=== PATIENT | female | born 1985 | race Caucasian/White ===

== ENCOUNTER 2016-12-28 14:56 | Emergency (ER) | payer BC ==
--- NOTE | 2016-12-28 15:18 | UC ---
Throat Pain/Nasal Raghu HPI - HPI Summary HPI Summary: ST for about a week. and children have been treated for strep in the last few days, figured she should get seen before they run out of abx. No fever , vomiting, or rashes. Denies nasal congestion or cough. - History of Current Complaint Stated Complaint: SORE THROAT Time Seen by Provider: 12/28/16 15:07 Hx Obtained From: Patient Hx Last Menstrual Period: 06/17/16- PERIODS ARE IRREGULAR ?: No Onset/Duration: Gradual Onset, Lasting Days Severity: Mild Cough: None - Allergies/Home Medications Allergies/Adverse Reactions: Allergies Allergy/AdvReac Type Severity Reaction Status Date / Time No Known Allergies Allergy Verified 07/22/16 19:48 PMH/Surg Hx/FS Hx/Imm Hx Previously Healthy: Yes Endocrine History Of: Denies: Diabetes Cardiovascular History Of: Denies: Cardiac Disorders Respiratory History Of: Denies: Asthma - Surgical History Surgical History: Yes Surgery Procedure, Year, and Place: tonsillectomy. cholecystectomy - Family History Known Family History: Positive: Diabetes, Other - asthma Family History: NON CONTRIBUTORY - Social History Lives: With Family Alcohol Use: Occasionally Substance Use Type: None Smoking Status (MU): Never Smoked Tobacco Review of Systems Constitutional: Negative Skin: Negative Eyes: Negative ENT: Sore Throat Respiratory: Negative Cardiovascular: Negative Gastrointestinal: Negative Genitourinary: Negative Motor: Negative Neurovascular: Negative Musculoskeletal: Negative Neurological: Negative Psychological: Negative All Other Systems Reviewed And Are Negative: Yes Physical Exam Triage Information Reviewed: Yes Appearance: Well-Appearing, No Pain Distress, Obese Vital Signs Reviewed: Yes Eye Exam: Normal Eyes: Positive: Conjunctiva Clear ENT: Positive: Hearing grossly normal, TMs normal. Negative: Tonsillar swelling - s/p tonsillectomy, Tonsillar exudate Dental Exam: Normal Neck exam: Normal Neck: Positive: Supple, Nontender, No Lymphadenopathy Respiratory Exam: Normal Respiratory: Positive: Chest non-tender, Lungs clear, Normal breath sounds, No respiratory distress, No accessory muscle use Cardiovascular Exam: Normal Cardiovascular: Positive: RRR, No Murmur Musculoskeletal Exam: Normal Neurological Exam: Normal Neurological: Positive: Alert Psychological Exam: Normal Skin Exam: Normal Throat Pain/Nasal Course/Dx - Course Course Of Treatment: RST negative - Differential Dx/Diagnosis Provider Diagnoses: pharyngitis Discharge - Discharge Plan Condition: Stable Disposition: HOME Patient Education Materials: Pharyngitis (ED) Referrals: Marquita Cleary MD [Primary Care Provider] - Additional Instructions: Your rapid strep was negative; either you had strep but cleared it, or you have a sore throat from something else. Please get seen again if symptoms persist or worsen.
[2016-12-28 15:31] VITALS: BP 126/70
== END 2016-12-28 15:43 | disposition home or self-care (01) ==
LOC: UCCORT 14:56
DX: J02.9 Acute pharyngitis, unspecified (principal); E66.9 Obesity, unspecified; Z90.49 Acquired absence of other specified parts of digestive tract
CPT/HCPCS: 87651; 99211; G0463

== ENCOUNTER 2017-01-06 09:00 | Emergency (ER) | payer BC ==
[2017-01-06 09:32] VITALS: BP 126/74
--- NOTE | 2017-01-06 10:58 | UC ---
Throat Pain/Nasal Raghu HPI - HPI Summary HPI Summary: WORSENING SORETHROAT SINCE 12/28/16. EXPOSED TO STREP WITH CHILDREN, HAS HAD FEVER OF 101F. INCREASED URINARY FREQUENCY OVER LAST TWO DAYS. - History of Current Complaint Chief Complaint: UCGU Stated Complaint: FEVER SORE THROAT RECHECK Time Seen by Provider: 01/06/17 10:16 Hx Obtained From: Patient Hx Last Menstrual Period: 2 months Onset/Duration: Gradual Onset, Lasting Weeks, Still Present Severity: Moderate Cough: Nonproductive Associated Signs & Symptoms: Positive: Hoarseness, Sinus Discomfort, Nasal Discharge, Fever - Epiglottits Risk Factors Epiglottis Risk Factors: Negative - Allergies/Home Medications Allergies/Adverse Reactions: Allergies Allergy/AdvReac Type Severity Reaction Status Date / Time No Known Allergies Allergy Verified 01/06/17 09:32 Home Medications: Home Medications [id number] [Nighttime Cold Flu & Reli 15-6.25-325 mg] 2 cap PO ONCE PRN 01/06/17 [History Confirmed 01/06/17] Implanon 01/06/17 [History] Ibuprofen TAB* [Motrin TAB* 600 MG] 600 mg PO Q6H PRN 01/06/17 [History Confirmed 01/06/17] metFORMIN* [Glucophage 500 MG TAB *] 500 mg PO DAILY 01/06/17 [History Confirmed 01/06/17] PMH/Surg Hx/FS Hx/Imm Hx Previously Healthy: Yes Endocrine History Of: Denies: Diabetes Cardiovascular History Of: Denies: Cardiac Disorders Respiratory History Of: Denies: Asthma - Surgical History Surgical History: Yes Surgery Procedure, Year, and Place: tonsillectomy. cholecystectomy - Family History Known Family History: Positive: Diabetes, Other - asthma Negative: Renal Disease Family History: NON CONTRIBUTORY - Social History Occupation: Employed Full-time Lives: With Family Alcohol Use: Occasionally Substance Use Type: None Smoking Status (MU): Former Smoker - Immunization History Most Recent Influenza Vaccination: [id number] Review of Systems Constitutional: Fever, Chills, Fatigue Skin: Negative Eyes: Negative ENT: Sore Throat, Nasal Discharge Respiratory: Cough Cardiovascular: Negative Gastrointestinal: Negative Genitourinary: Frequency, Urgency Motor: Negative Neurovascular: Negative Musculoskeletal: Negative Neurological: Negative Psychological: Negative All Other Systems Reviewed And Are Negative: Yes Physical Exam Triage Information Reviewed: Yes Appearance: Well-Appearing, Well-Nourished, Obese Vital Signs: Initial Vital Signs Temp 99.8 F 01/06/17 09:23 Pulse 94 01/06/17 09:23 Resp 18 01/06/17 09:23 BP 126/74 01/06/17 09:23 Pulse Ox 100 01/06/17 09:23 Vital Signs Reviewed: Yes Eye Exam: Normal ENT: Positive: Hearing grossly normal, Pharyngeal erythema, Nasal congestion, Nasal drainage, TM bulging, TM dull Dental Exam: Normal Neck exam: Normal Neck: Positive: Supple, Nontender, No Lymphadenopathy Respiratory Exam: Normal Respiratory: Positive: Chest non-tender, Lungs clear, Normal breath sounds, No respiratory distress, No accessory muscle use Cardiovascular Exam: Normal Cardiovascular: Positive: RRR, No Murmur, Pulses Normal Abdominal Exam: Normal Abdomen Description: Positive: Nontender, No Organomegaly Musculoskeletal Exam: Normal Musculoskeletal: Positive: Strength Intact, ROM Intact Neurological Exam: Normal Psychological Exam: Normal Psychological: Positive: Normal Response To Family Skin Exam: Normal Throat Pain/Nasal Course/Dx - Differential Dx/Diagnosis Differential Diagnosis/HQI/PQRI: Sinusitis, Tonsillitis, URI Provider Diagnoses: SINUSITIS. PHARYNGITIS. DYSURIA Discharge - Discharge Plan Condition: Stable Disposition: HOME Prescriptions: Amoxicillin/Clavulanate TAB* [Augmentin TAB 875*] 875 mg PO BID #20 tab Benzonatate CAP* [Tessalon 100 MG CAP*] 100 mg PO TID PRN #15 cap PRN Reason: Cough Patient Education Materials: Pharyngitis (ED), Sinusitis (ED), Dysuria (ED) Forms: *Work Release Referrals: Marquita Cleary MD [Primary Care Provider] -
== END 2017-01-06 11:00 | disposition home or self-care (01) ==
LOC: UCCORT 09:00
DX: J32.9 Chronic sinusitis, unspecified (principal); J02.9 Acute pharyngitis, unspecified; R30.0 Dysuria; Z32.02 Encounter for pregnancy test, result negative; Z90.49 Acquired absence of other specified parts of digestive tract; E66.9 Obesity, unspecified; Z87.891 Personal history of nicotine dependence
CPT/HCPCS: 81003; 84702; 99212; G0463

== ENCOUNTER 2017-03-03 08:24 | Emergency (ER) | payer BC ==
--- NOTE | 2017-03-03 08:33 | UC ---
UC General HPI - HPI Summary HPI Summary: The patient comes in today for: 1. Possible tampon in vaginal area: Onset: Yesterday. Palliative/provocative: Nothing makes it better or worse. Quality: "Pressure." Region: Severity: 0/10 Time: Constant. Associated symptoms: Event: She thinks that she has a tampon in the vagina which she is not able to get out at home. LMP: 'Slowing down yesterday." A0 female. * - History of Current Complaint Stated Complaint: PERSONAL Time Seen by Provider: 03/03/17 08:27 - Allergy/Home Medications Allergies/Adverse Reactions: Allergies Allergy/AdvReac Type Severity Reaction Status Date / Time No Known Allergies Allergy Verified 03/03/17 08:32 PMH/Surg Hx/FS Hx/Imm Hx Previously Healthy: Yes - Surgical History Surgical History: Yes Surgery Procedure, Year, and Place: tonsillectomy. cholecystectomy - Family History Known Family History: Positive: Hypertension, Diabetes, Other - asthma Negative: Cardiac Disease, Renal Disease Family History: NON CONTRIBUTORY - Social History Occupation: Employed Full-time Alcohol Use: Occasionally Substance Use Type: None Smoking Status (MU): Former Smoker - Immunization History Most Recent Influenza Vaccination: [id number] Review of Systems Constitutional: Negative Skin: Negative Eyes: Negative ENT: Negative Respiratory: Negative Cardiovascular: Negative Gastrointestinal: Negative Genitourinary: Negative All Other Systems Reviewed And Are Negative: Yes Physical Exam Triage Information Reviewed: Yes Appearance: Well-Appearing, No Pain Distress, Well-Nourished Vital Signs Reviewed: Yes Eyes: Positive: Conjunctiva Clear. Negative: Discharge ENT: Positive: Hearing grossly normal. Negative: Pharyngeal erythema, Nasal congestion, Nasal drainage, TM bulging, TM dull, TM red, Tonsillar swelling, Tonsillar exudate Dental: Negative: Gross Decay/Caries @, Dental Fracture @ Neck: Positive: Supple, Nontender, No Lymphadenopathy. Negative: Nuchal Rigidity Respiratory: Positive: Chest non-tender, Lungs clear, No respiratory distress. Negative: Rhonchi, Wheezing Cardiovascular: Positive: RRR, No Murmur Abdomen Description: Positive: Nontender, No Organomegaly, Soft. Negative: Distended, Guarding Musculoskeletal: Positive: Strength Intact, ROM Intact, No Edema Neurological: Positive: Alert, Muscle Tone Normal Psychological: Positive: Age Appropriate Behavior, Consolable Skin: Negative: rashes, breakdown UC Physical Exam - Genitalia Exam Female Genitourinary: Other - External genital: No lesions Speculum: Tampon removed. No discharge Bimanual: No tenderness or masses. Course/Dx - Differential Dx - Multi-Symptom Provider Diagnoses: Retained tampon--removed. Discharge - Discharge Plan Condition: Stable Disposition: HOME Referrals: Marquita Cleary MD [Primary Care Provider] - If Needed
[2017-03-03 08:43] VITALS: BP 152/75
== END 2017-03-03 09:30 | disposition home or self-care (01) ==
LOC: UCCORT 08:24
DX: T19.2XXA Foreign body in vulva and vagina, initial encounter (principal); X58.XXXA Exposure to other specified factors, initial encounter; Y93.9 Activity, unspecified; Y92.9 Unspecified place or not applicable; Z90.49 Acquired absence of other specified parts of digestive tract; Z87.891 Personal history of nicotine dependence
CPT/HCPCS: 99211; G0463

== ENCOUNTER 2017-11-02 16:09 | Emergency (ER) | payer BC ==
[2017-11-02 16:30] VITALS: BP 152/75
--- NOTE | 2017-11-02 16:44 | ED ---
Neck Pain - HPI Summary HPI Summary: 31 yr old female with neck pain on left side and in the left trapezius, feels tight, onset a couple of weeks ago, worse with movement and turning head toward the left the most. No trauma or injury. 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 No falls or injuries on her job. She denies weakness or numbness in the left hand. - History of Current Complaint Chief Complaint: UCUpperExtremity Stated Complaint: LEFT SHOULDER AND NECK PAIN Time Seen by Provider: 11/02/17 16:30 Hx Last Menstrual Period: irregular/uses condoms Pain Intensity: 7 - Allergies/Home Medications Allergies/Adverse Reactions: Allergies Allergy/AdvReac Type Severity Reaction Status Date / Time No Known Allergies Allergy Verified 11/02/17 16:30 Home Medications: Home Medications metFORMIN* [Glucophage 500 MG TAB *] 500 mg PO BID 11/02/17 [History Confirmed 11/02/17] PMH/Surg Hx/FS Hx/Imm Hx Endocrine/Hematology History: Denies: Hx Diabetes Respiratory History: Denies: Hx Asthma History: Reports: Other Problems/Disorders - Polycystic ovarian syndrome - Surgical History Surgery Procedure, Year, and Place: tonsillectomy. cholecystectomy Infectious Disease History: No Infectious Disease History: Denies: Traveled Outside the [place] in Last 30 Days - Family History Known Family History: Positive: Hypertension, Diabetes, Other - asthma Negative: Cardiac Disease, Renal Disease Family History: NON CONTRIBUTORY - Social History Alcohol Use: Occasionally Substance Use Type: Reports: None Smoking Status (MU): Former Smoker Review of Systems Positive: Other - neck/trapezius pain All Other Systems Reviewed And Are Negative: Yes Physical Exam Triage Information Reviewed: Yes Vital Signs On Initial Exam: Initial Vitals Temp Pulse Resp BP Pulse Ox 98.1 F 90 17 152/75 98 11/02/17 16:24 11/02/17 16:24 11/02/17 16:24 11/02/17 16:24 11/02/17 16:24 Vital Signs Reviewed: Yes Appearance: Positive: Well-Appearing, No Pain Distress Skin: Positive: Warm, Skin Color Reflects Adequate Perfusion Head/Face: Positive: Normal Head/Face Inspection Eyes: Positive: EOMI ENT: Positive: Normal ENT inspection, Pharynx normal, Uvula midline. Negative: Muffled voice, Hoarse voice Dental: Negative: Cervical Lymphadenopathy Neck: Positive: Nontender, No Lymphadenopathy. Negative: Nuchal Rigidity Respiratory/Lung Sounds: Positive: Clear to Auscultation, Breath Sounds Present Cardiovascular: Positive: RRR. Negative: Murmur Abdomen Description: Positive: Nontender Musculoskeletal: Positive: Other - left side of her trapezius is tight, and rom of the neck is limited a little looking toward the left side. No focal bone tenderness on the neck. No focal weakness in the left arm or right arm. No numbness. she has no redness or fluctuance on inspection or palpation of the neck or trapezius Neurological: Positive: Sensory/Motor Intact, Alert, Oriented to Person Place, Time, CN Intact II-III - Madeline Coma Scale Best Eye Response: 4 - Spontaneous Best Motor Response: 6 - Obeys Commands Best Verbal Response: 5 - Oriented Coma Scale Total: 15 Diagnostics - Vital Signs Vital Signs Temp Pulse Resp BP Pulse Ox 11/02/17 16:24 98.1 F 90 17 152/75 98 - Laboratory Lab Statement: Any lab studies that have been ordered have been reviewed, and results considered in the medical decision making process. Neck Course/Dx - Course Course Of Treatment: 31 yr old with neck torticollis. Rx flexeril, motrin. DC home. FU with pmd. - Diagnoses Provider Diagnoses: Torticollis, Hypertension Discharge - Discharge Plan Condition: Good Disposition: HOME Patient Education Materials: Spasmodic Torticollis (ED), Hypertension (ED) Referrals: REFUGIO Romo [Primary Care Provider] -
== END 2017-11-02 16:59 | disposition home or self-care (01) ==
LOC: UCCORT 16:09
DX: M43.6 Torticollis (principal); I10 Essential (primary) hypertension; Z32.02 Encounter for pregnancy test, result negative; Z90.49 Acquired absence of other specified parts of digestive tract; Z87.891 Personal history of nicotine dependence
CPT/HCPCS: 84702; 99212; G0463

== ENCOUNTER 2019-08-26 11:32 | Emergency (ER) | payer BC ==
[2019-08-26 12:00] VITALS: BP 154/71
--- NOTE | 2019-08-26 12:04 | UC ---
Ear Complaint HPI - HPI Summary HPI Summary: 33-year-old female who complains of some left ear pain and "clicking" of her jaw on the left side over the past few days since she finished an antibiotic for sinus infection this past week. - History of Current Complaint Chief Complaint: UCEar Stated Complaint: LT EAR COMPLAINT Time Seen by Provider: 08/26/19 11:47 Hx Obtained From: Patient Hx Last Menstrual Period: 08/22/19 ?: No Onset/Duration: Gradual Onset Severity Initially: Mild Severity Currently: Mild Pain Intensity: 0 Aggravating Factors: Other Alleviating Factors: Nothing - Chewing food - Allergies/Home Medications Allergies/Adverse Reactions: Allergies Allergy/AdvReac Type Severity Reaction Status Date / Time No Known Allergies Allergy Verified 08/26/19 11:55 Home Medications: Home Medications FLUoxetine CAP* [PROzac CAP*] 20 mg PO DAILY 08/26/19 [History Confirmed ] Topiramate TAB(*) [Topamax 25 MG tab] 50 mg PO BID 08/26/19 [History Confirmed 08/26/19] PMH/Surg Hx/FS Hx/Imm Hx Previously Healthy: Yes - Surgical History Surgical History: Yes Surgery Procedure, Year, and Place: tonsillectomy. cholecystectomy - Family History Known Family History: Positive: Hypertension, Diabetes, Other - asthma Negative: Cardiac Disease, Renal Disease Family History: NON CONTRIBUTORY - Social History Alcohol Use: Occasionally Substance Use Type: None Smoking Status (MU): Former Smoker - Immunization History Most Recent Influenza Vaccination: [id number] Review of Systems All Other Systems Reviewed And Are Negative: Yes ENT: Positive: Ear Ache - Left earache as well as left jaw pain near the TMJ. Patient states she can feel clicking when she moves her jaw and eats. Is Patient Immunocompromised?: No Physical Exam Triage Information Reviewed: Yes Appearance: Well-Appearing, No Pain Distress, Well-Nourished Vital Signs: Initial Vital Signs Temp 97.1 F 08/26/19 11:54 Pulse 81 08/26/19 11:54 Resp 19 08/26/19 11:54 BP 154/71 08/26/19 11:54 Pulse Ox 99 08/26/19 11:54 Vital Signs Reviewed: Yes Eyes: Positive: Conjunctiva Clear ENT: Positive: Hearing grossly normal, Pharynx normal, TMs normal, Uvula midline Dental: Positive: Other: - The patient's mildly tender around the left TMJ area. No erythema, deformity, bruising or swelling is noted. Her ear exam is normal. I do not feel clicking when she opens and closes her mouth however she states she can feel it. Neck: Positive: Supple, Nontender, No Lymphadenopathy Respiratory: Positive: Lungs clear, Normal breath sounds, No respiratory distress, No accessory muscle use Cardiovascular: Positive: RRR, No Murmur, Pulses Normal, Brisk Capillary Refill Musculoskeletal Exam: Normal Neurological Exam: Normal Psychological Exam: Normal Skin Exam: Normal Ear Complaint Course/Dx - Course Course Of Treatment: Patient is comfortable here. Her ear exam was normal. I am referring her to the oral surgeon Dr. Villarreal for further evaluation. - Differential Dx/Diagnosis Provider Diagnosis: Otalgia, left ear, TMJ tenderness, left Discharge ED - Sign-Out/Discharge Documenting (check all that apply): Patient Departure All imaging exams completed and their final reports reviewed: No Studies - Discharge Plan Condition: Good Disposition: HOME Patient Education Materials: Temporomandibular Disorder (ED) Referrals: Chastity Simmons [Primary Care Provider] - Cr Acosta DMD [Doctor of Dental Medicine] - Additional Instructions: Tylenol every 4 hours for pain and may alternate every 8 hours with Motrin as needed. Apply warm, moist compresses to the sore area as needed. Follow up with Dr. Villarreal this week. - Billing Disposition and Condition Condition: GOOD Disposition: Home
== END 2019-08-26 12:33 | disposition home or self-care (01) ==
LOC: UCCORT 11:32
DX: H92.02 Otalgia, left ear (principal); M26.69 Other specified disorders of temporomandibular joint; Z87.891 Personal history of nicotine dependence
CPT/HCPCS: 99211; G0463